=== PATIENT | male | born 1955 | race African-American/Black ===

== ENCOUNTER 2020-05-30 02:21 | Inpatient (IN) | payer MEDICARE, MEDICAID ==
[2020-05-30 03:32] LABS: INR-International Normal Ratio 1.2; PTT 29.5 sec (22.9-36.1); Prothrombin Time 15.3 sec (12.0-14.7)
[2020-05-30 03:37] LABS: Hemoglobin 7.4 g/dL (14.0-18.0); Mean Corpuscular HGB CONC 34.6 g/dL (32.0-36.0); Mean Corpuscular Volume 72.2 fL (78.0-98.0); Mean Platelet Volume 7.8 fL (7.4-10.4); Platelet Count 224 thou/uL (130-400); RBC Distribution Width 13.4 % (11.5-14.5); Red Blood Cell (RBC) Count 2.98 mill/uL (4.70-6.10)
[2020-05-30 03:44] LABS: Eosinophils 3 % (0-10); Lymphocytes 48 % (21-51); MDiff Complete? YES; Monocytes 3 % (0-10); Neutrophil 46 % (42-75); Platelet Morphology Comment Appears Adequate
[2020-05-30 03:57] LABS: ALT (SGPT) 63 U/L (8-55); AST (SGOT) 103 U/L (5-34); Albumin 3.2 g/dL (3.4-4.8); Alkaline Phosphatase 133 U/L (40-110); Anion Gap 16 mmol/L (10-20); BUN (Urea Nitrogen) 28 mg/dL (8.4-25.7); Bilirubin, Total 0.3 mg/dL (0.2-1.2); Calc. Creatinine Clearance 0 mL/min (70-130); Calcium 7.9 mg/dL (7.8-10.44); Carbon Dioxide 17 mmol/L (23-31); Chloride 105 mmol/L (98-107); Estimated GFR-MDRD 65; Globulin 3.1 g/dL (2.4-3.5); Glucose 128 mg/dL (80-115); Potassium 4.4 mmol/L (3.5-5.1); Protein, Total 6.3 g/dL (5.8-8.1); Sodium 134 mmol/L (136-145)
[2020-05-30] MEDS ORDERED: Ondansetron ODT 4 MG TAB PO PRN (05:44)
[2020-05-30] MEDS ORDERED: Ondansetron PF 4 MG/2 ML Vial IVP PRN (05:44)
--- NOTE | 2020-05-30 05:53 | PDOC.HHP ---
Hospitalist HPI - History of Present Illness blood in stool History of Present Illness: Case of an 64y/o male with pmhx of cva, hx of seizures DM, htn and hld who comes to hospital due to rectal bleeding. Patient states was on his usual state of health until today when he started to have multiple episodes of brigh red blood per rectum. he states got concern when he started to feel light headache for which he came to hospital for evaluation. he reports 5 episodes of bloody stools and had another at the ED. patient reports that he does not use blood thinner but is on plavix secondary to a previous stroke. refers a previus similar espisode 3 years ago which was dx as diverticular bleed. Patient denies any abdominal pain fever chills or nause Hospitalist ROS - Review of Systems All other systems reviewed; all pertinent +/- noted in HPI/Subj Hospitalist History - Past Surgical History Other Surgical History: rectal surgery - Social History Smoking Status: Current every day smoker Alcohol: reports: Occassional Drugs: reports: none Living Situation: With Family - Exam General Appearance: NAD, awake alert Eye: PERRL, anicteric sclera ENT: normocephalic atraumatic, no oropharyngeal lesions, moist mucosa Neck: supple, symmetric, no JVD, no thyromegaly Heart: RRR, no murmur, no gallops, no rubs Respiratory: CTAB, no wheezes, no rales, no ronchi Gastrointestinal: soft, non-tender, non-distended, normal bowel sounds Extremities: no cyanosis, no clubbing, no edema Skin: normal turgor, no lesions, no rashes Neurological: cranial nerve grossly intact, normal sensation to touch, no weakness Musculoskeletal: normal tone, normal strength, no muscle wasting Psychiatric: normal affect, normal behavior, A&O x 3 Hospitalist Results - Labs Result Diagrams: 05/30/20 03:05 05/30/20 03:05 Lab results: WBC 5.0 thou/uL (4.8-10.8) 05/30/20 03:05 Hgb 7.4 g/dL (14.0-18.0) L 05/30/20 03:05 Hct 21.5 % (42.0-52.0) L 05/30/20 03:05 MCV 72.2 fL (78.0-98.0) L 05/30/20 03:05 Plt Count 224 thou/uL (130-400) 05/30/20 03:05 Sodium 134 mmol/L (136-145) L 05/30/20 03:05 Potassium 4.4 mmol/L (3.5-5.1) 05/30/20 03:05 Chloride 105 mmol/L (98-107) 05/30/20 03:05 Carbon Dioxide 17 mmol/L (23-31) L 05/30/20 03:05 BUN 28 mg/dL (8.4-25.7) H 05/30/20 03:05 Creatinine 1.35 mg/dL (0.7-1.3) H 05/30/20 03:05 Glucose 128 mg/dL (80-115) H 05/30/20 03:05 Calcium 7.9 mg/dL (7.8-10.44) 05/30/20 03:05 Total Bilirubin 0.3 mg/dL (0.2-1.2) 05/30/20 03:05 AST 103 U/L (5-34) H 05/30/20 03:05 ALT 63 U/L (8-55) H 05/30/20 03:05 Alkaline Phosphatase 133 U/L (40-110) H 05/30/20 03:05 Serum Total Protein 6.3 g/dL (5.8-8.1) 05/30/20 03:05 Albumin 3.2 g/dL (3.4-4.8) L 05/30/20 03:05 Hospitalist H&P A/P - Problem (1) Lower GI bleeding Code(s): K92.2 - GASTROINTESTINAL HEMORRHAGE, UNSPECIFIED Status: Acute (2) Diabetes Code(s): E11.9 - TYPE 2 DIABETES MELLITUS WITHOUT COMPLICATIONS Status: Acute (3) HLD (hyperlipidemia) Code(s): E78.5 - HYPERLIPIDEMIA, UNSPECIFIED Status: Acute (4) HTN (hypertension) Code(s): I10 - ESSENTIAL (PRIMARY) HYPERTENSION Status: Acute - Plan Plan: 64y/o male with the stated pmhx who presents with lower gi bleeding lower gi bleeding - npo - gi consult - holding plavix - check hg q 4 hrs - transfuse if below 7 - ct showed showed wall thickening and inflammatory changes in terminal ilium and cecum - will cover w zosyn hld / htn / dm / seizures - continue home meds when able to tolerate po
[2020-05-30] MEDS: Sodium Chloride 0.9% 1,000 ML IV SCH (07:41)
[2020-05-30] MEDS: Piperacillin/Tazobactam 3.375 GM in Sodium Chloride 0.9% 100 ML IVPB SCH ×3 (07:42→20:53)
[2020-05-30 07:47] VITALS: BMI 20.3
[2020-05-30] MEDS ORDERED: FLU VACC QS2020-21(6MOS UP)/PF 60 MCG/0.5 ML SYRINGE IM ONE (08:15)
--- NOTE | 2020-05-30 08:42 | CT ---
PRELIMINARY REPORT/[facility]/EMERGENCY AFTER HOURS PROCEDURE EXAM: CT Abdomen and Pelvis with Intravenous Contrast CLINICAL HISTORY: Patient here for evaluation secondary to rectal bleeding. Patient states that he is having diarrhea i s just blood. Was starting to have some lightheadedness which is what prompted him to come in. TECHNIQUE: Axial computed tomography images of the abdomen and pelvis with intravenous contrast. CONTRAST: With; 60ML ISOVUE 370 COMPARISON: None provided. FINDINGS: LUNG BASES: No basilar airspace consolidation or pleural effusion. LIVER: Unremarkable. GALLBLADDER AND BILE DUCTS: Unremarkable. No calcified stone. No ductal dilation. PANCREAS: Unremarkable. SPLEEN: Unremarkable. ADRENAL GLANDS: Unremarkable. KIDNEYS, URETERS, AND BLADDER: Unremarkable. No hydronephrosis or nephrolithiasis. No ureteral or bladder calculi. STOMACH AND BOWEL: There is no evidence of intestinal obstruction. There is bowel wall thickening involving the termina l ileum and the region of the cecum. An ileitis is suspected. Other inflammatory bowel disease is not excluded.. APPENDIX: No CT evidence for appendicitis. PERITONEUM: No free fluid. No free air. LYMPH NODES: No lymphadenopathy. REPRODUCTIVE: Unremarkable as visualized. VASCULATURE: No aortic aneurysm. BONES: No fracture or suspicious osseous abnormality. ABDOMINAL WALL AND SOFT TISSUES: Unremarkable. IMPRESSION: There is bowel wall thickening and slight inflammatory change in the terminal ileum and the cecum, te rminal ileitis is suspected. There is no evidence of intestinal obstruction.. ELECTRONICALLY SIGNED BY: Chelsie Lewis DO May 30, 2020 4:22:45 AM JOB [employer]TER This report is intended for review by the ordering physician only, in accordance of law. If you recei ve this report in error, please call [facility] at [phone]. FINAL REPORT Final interpretation CT of the abdomen and pelvis: 05/30/2020 COMPARISON: None. HISTORY: Rectal bleeding. FINDINGS: The imaged lung bases demonstrate a tiny nodule laterally on image 6 measuring 3 mm. No taylor e intraperitoneal air or fluid is seen. Hypodensity is seen within the anterior aspect of the left lobe of the liver suggesting a focal area of fatty infiltration. There is a hypodensity in the superior aspect of the right lobe of the liver on image 14 measuring 8 mm, too small to characterize. Splenic granulomata noted. Diffuse hypodensity of the hepatic parenchyma suggests steatosis. The pancreas and adrenal glands demonstrate no acute findings. Bilateral kidneys appear grossly unremarkable. The lack of contrast media limits assessment of the bowel. On axial image 84, 85, 86, and 87, there i s abnormal soft tissue density in the left ischioanal fossa measuring approximately 2.9 cm in AP dimension and 1.6 cm in transverse dimension. This is not mentioned on the preliminary report and cou ld be related to malignancy on the basis of exophytic tumor or lymphadenopathy. There is no evidence of abscess in this region and there is no extraluminal gas seen. As mentioned in the preliminary report, there is circumferential wall thickening of the cecum. There is mild wall prominence of the ileum. Mildly enlarged lymph nodes are noted within the right lower quadrant mesentery measuring in the 7-8 mm range. No evidence for appendicitis. No evidence for large or small bowel obstruction. There is a small sliding-type hiatal hernia present. There is multilevel lower lumbar spine facet hypertrophy. No worrisome lytic or blastic bone lesions are seen. There is atherosclerotic calcification of the infrarenal abdominal aorta and the imaged arterial structures of the partially visualized upper extremities. IMPRESSION: 1. Circumferential wall thickening in the region of the cecum with adjacent mildly enlarged lymph nod es within the right lower quadrant mesentery. While this could represent an inflammatory/infectious process, in a patient of this age and given the lack of adjacent inflammatory fat stranding, this abn ormality is suspicious for malignancy. 2. Nonspecific hypodensity within the right lobe of the liver, too small to characterize. 3. Nonspecific soft tissue density in the left ischioanal fossa, not mentioned on the preliminary rep ort, suspicious for possible underlying malignancy. Dr. Ann made aware at 8:40 AM 05/30/2020 Code QD Transcribed Date/Time: 05/30/2020 9:28 AM
[2020-05-30] MEDS ORDERED: Iopamidol-370 76% 500 ML 1 ML ONE (09:20)
[2020-05-30] MEDS ORDERED: Heparin 1,000 UNITS/ML VIAL ONE (10:46)
[2020-05-30] MEDS ORDERED: GoLYTELY 4,000 ml Bottle PO SCH ×2 (11:00→18:00)
--- NOTE | 2020-05-30 11:30 | CON ---
DATE OF CONSULTATION: 05/30/2020 REQUESTING PHYSICIAN: Dr. Hawkins. REASON FOR CONSULTATION: Lower GI bleeding. HISTORY OF PRESENT ILLNESS: Kings Villafana Jr is a very pleasant 64-year-old man with a prior history of CVA and seizures as well as diabetes. He is on Plavix and aspirin. He reports having had a significant lower GI bleeding episode back in July 2017, having undergone endoscopy at that time and being diagnosed with diverticular bleeding. That episode resolved. He was more recently referred to our clinic, but had not been seen yet regarding iron deficiency anemia. Basically, over the past year, his hemoglobin has ranged from 9 to 10 and is microcytic. He takes oral iron supplementation, but has not had good response in his hemoglobin. He was admitted to the hospital early this morning with acute bright red blood per rectum. He states this started happening yesterday. He has had about 5 or 6 episodes of this which have been fairly large volume. There is no associated abdominal pain or nausea, but he did start to get lightheaded, which prompted his presentation. Labs early this morning showed hemoglobin 7.4, but repeat hemoglobin came back at 6.0, and he is about to get RBC transfusion. He has been hemodynamically stable with no tachycardia or hypotension and he has no other complaints. A CT of the abdomen and pelvis preliminary report came back suggesting terminal ileal and cecal inflammatory changes, but on the over-read, it was felt that rather than inflammatory changes, he just had circumferential thickening of the cecal area with associated lymphadenopathy and no inflammatory stranding, suspicious for malignancy as well as a 2.9 cm left ischioanal fossa density, also concerning for malignancy. REVIEW OF SYSTEMS: Full review of systems including constitutional, head, eyes, ears, nose, throat, GI, , cardiovascular, respiratory, musculoskeletal, neurologic systems is negative except as noted in the HPI. PAST MEDICAL HISTORY: CVA, diabetes, seizures, hypertension, hyperlipidemia, diverticular bleeding in July 2017, iron deficiency anemia with baseline hemoglobin 9 to 10. ALLERGIES: NO KNOWN DRUG ALLERGIES. OUTPATIENT MEDICATIONS: 1. Aspirin 81 mg daily. 2. Plavix 75 mg daily. 3. Losartan. 4. Amlodipine. 5. Metoprolol. 6. Phenytoin. 7. Pravastatin. 8. Hydroxyzine. 9. Iron 65 mg daily. SOCIAL HISTORY: The patient does smoke. Alcohol use is occasional. No drug use. FAMILY HISTORY: Noncontributory. PHYSICAL EXAMINATION: VITAL SIGNS: Temperature 98.4, pulse 80, blood pressure 114/72, 100% oxygen saturation on room air. GENERAL: A 64-year-old man, lying in bed comfortably, in no distress. MENTAL: He is alert and oriented, pleasant, conversational. He can give details about his history. SKIN: No jaundice, no rashes were palpable. EYES: No scleral icterus. Extraocular movements intact. ENT: Mucous membranes moist. No oral lesions. LYMPH: No submandibular or supraclavicular lymphadenopathy. THYROID: Nontender to palpation. HEART: Regular rate and rhythm. LUNGS: Clear to auscultation bilaterally. ABDOMEN: Nondistended. Bowel sounds present. Soft, nontender to palpation throughout. EXTREMITIES: No peripheral edema. VESSELS: Radial pulses 2+ bilaterally. NEURO : Cranial nerves 2 through 12 intact bilaterally. No focal deficits. LABORATORY STUDIES: Hemoglobin initially 7.4, but on repeat was 6.0; MCV 72.2; WBC 5.0; platelets 224. Sodium 134, potassium 4.4, BUN 28, creatinine 1.35. INR 1.2. Total bilirubin 0.3. Alkaline phosphatase 133, AST 103, ALT 63, albumin 3.2. COVID PCR is pending. IMAGING STUDIES: CT of the abdomen and pelvis, final report demonstrates circumferential thickening of the cecum with associated lymphadenopathy and lack of adjacent inflammatory stranding, all suspicious for malignancy. There is also nonspecific 2.9 cm left ischioanal fossa density which is also suspicious for malignancy. There is an 8 mm hypodensity in the right liver which is too small to characterize. ASSESSMENT AND PLAN: 1. Acute lower GI bleeding. 2. Abnormal CT of the colon, suggestive of cecal mass as well as mass in the ischioanal fossa. 3. History of diverticular bleed, last July 2017. The patient appears to have quite significant acute bleeding here with rapid hemoglobin decline from 7.4 to 6.0, despite his hemodynamic stability so far. Clinically, this could certainly favor recurrent diverticular bleed, but given the CT findings, need to consider severe inflammatory process or malignant process in the cecum as well. I have spoken with Dr. Hawkins. The patient should be transferred to a monitored unit for closer observation, and is going to be getting RBC transfusion. Continue with frequent H and H checks and transfuse as needed. We will give the patient a clear liquid diet today in anticipation of bowel preparation this evening, for colonoscopy tomorrow morning. We will also consent for EGD in case the colonoscopy is negative or unrevealing, which I doubt. GI will continue to follow along, with further recommendations following colonoscopy tomorrow. In the meantime, please feel free to call anytime with questions or concerns. Job ID: [id number]
[2020-05-30 14:46] LABS: Hemoglobin 6.3 g/dL (14.0-18.0)
[2020-05-30 16:25] LABS: SARS-CoV-2 MS2 Positive; SARS-CoV-2 N Gene Negative; SARS-CoV-2 S Gene Negative; SARS-CoV-2 by NAA Not Detected (NotDetected); SARS-CoV-2 orf1ab Negative
[2020-05-30 16:49] LABS: Hemoglobin 6.4 g/dL (14.0-18.0)
[2020-05-30 22:08] LABS: Hemoglobin 7.5 g/dL (14.0-18.0)
[2020-05-31] MEDS: Sodium Chloride 0.9% 1,000 ML IV SCH ×2 (01:29→23:14)
[2020-05-31] MEDS: Piperacillin/Tazobactam 3.375 GM in Sodium Chloride 0.9% 100 ML IVPB SCH ×4 (02:53→21:30)
[2020-05-31 04:02] LABS: Hemoglobin 6.1 g/dL (14.0-18.0)
[2020-05-31] MEDS ORDERED: Fentanyl 100 MCG/2 ML VIAL ONE (08:05)
[2020-05-31] MEDS ORDERED: Promethazine HCl 25 MG/ML VIAL IM PRN (08:50)
[2020-05-31] MEDS ORDERED: Promethazine HCl 25 MG/ML VIAL SLOW IVP PRN (08:50)
[2020-05-31] MEDS ORDERED: Ondansetron HCl/PF 4 MG/2 ML Vial IVP PRN (08:50)
[2020-05-31] MEDS ORDERED: PACU-Morphine 4MG/ML VIAL SLOW IVP PRN (08:50)
--- NOTE | 2020-05-31 09:39 | OP ---
DATE OF PROCEDURE: 05/31/2020 EMERGENCY MEDICAL SERVICE COORDINATOR SURGEON: None. PROCEDURES PERFORMED: 1. Colonoscopy, diagnostic. 2. Esophagogastroduodenoscopy, diagnostic. INDICATIONS: 1. Gastrointestinal bleeding. 2. Acute on chronic blood-loss anemia. 3. Abnormal CT scan, suggestive of cecal and ileal thickening as well as indeterminate density of the ischial anal fossa. MEDICATIONS: See Anesthesia record. FINDINGS: After discussion of the risks, benefits, and alternatives of the procedure, informed consent was obtained and witnessed. Pre-endoscopic cardiopulmonary examination was satisfactory. Time-out was performed before sedation was achieved. Sedation was achieved with Anesthesia assistance in the endoscopy unit. Digital rectal exam was performed, which was unremarkable. A Pentax adult colonoscope was inserted into the anus and passed forward to the cecum in the usual fashion. Advancement to the cecum was difficult due to tortuosity of the colon, but the cecal base was reached with the aid of manual pressure and loop reduction. The endoscope was advanced about 10 cm into the terminal ileum and then, slowly and gradually withdrawn in a circumferential manner with careful examination of the colonic mucosa. The quality of the prep was good. There was a large amount of fresh blood and blood clots fairly evenly distributed throughout the entire colon as well as the distal 10 cm of the terminal ileum, and as far up into the ileum as I could see. Fresh clots were coming out of the terminal ileum and from more proximal than I was able to reach with the scope. The mucosa of the ileum that I was able to examine appeared normal. I was not able to identify any bleeding lesion to the extent examined in either the ileum or the colon. There were really no diverticula noted except for possibly a small diverticulum right at the ileocecal valve, which was difficult to see. But, there was no blood coming from this area. Overall findings seem most consistent with more proximal source of active hemorrhage. Retroflexion in the rectum demonstrated internal hemorrhoids. The colonoscope was completely withdrawn. It was decided to proceed with upper endoscopy. The patient was repositioned. A Pentax adult upper endoscope was placed into the oropharynx and passed through the cricopharyngeus under direct visualization. The esophageal mucosa appeared normal throughout with the Z-line at 40 cm from the incisors. There were no esophageal varices. The endoscope was advanced into the stomach. Forward and retroflexed views of the entire gastric mucosa were obtained. The gastric mucosa appears completely normal. There were no gastric varices. No mucosal abnormalities. No old blood or active bleeding. The endoscope was advanced through the pylorus and into the first and second portions of the duodenum, which also appeared normal with no blood or any bleeding lesion noted. I advanced the scope down into the third and fourth portions of the duodenum, which also appeared normal. The upper endoscope was completely withdrawn and the patient allowed to recover. The patient tolerated the procedure well. There were no immediate postprocedure complications. IMPRESSION: 1. Fresh blood and clots evenly distributed throughout the entire colon as well as the distal 10 cm of the terminal ileum, all suggestive of more proximal bleeding source. 2. Tortuous colon. 3. Nonbleeding internal hemorrhoids. 4. Otherwise normal colonoscopy to the terminal ileum. 5. Normal esophagogastroduodenoscopy to the fourth portion of the duodenum. RECOMMENDATION: 1. Transfuse RBCs, continue to monitor H and H closely, keep ahead. 2. Stat nuclear medicine tagged RBC scan for localization. Based on endoscopy findings, suspect small bowel source of bleeding. 3. Clear liquid diet. 4. Keep holding the Plavix. 5. Depending on results of tagged RBC scan, we will likely need to obtain surgical consultation. Job ID: [id number]
[2020-05-31 10:10] LABS: Hemoglobin 6.4 g/dL (14.0-18.0)
[2020-05-31] MEDS ORDERED: PROPOFOL 200 MG/20 ML VIAL ONE (12:56)
[2020-05-31] MEDS ORDERED: Lidocaine 1% PF 5 ML VIAL ONE (12:56)
[2020-05-31] MEDS ORDERED: PHENYLEPHRINE-NS 100 MCG/ML 10 ML SYRINGE ONE (12:56)
--- NOTE | 2020-05-31 15:13 | NM ---
NUCLEAR MEDICINE TAGGED RED CELL SCAN HISTORY: Lower GI bleed RADIOPHARMACEUTICAL: 26 mCi technetium-99m tagged RBCs injected intravenously. COMPARISON: None FINDINGS: Normal uptake of the radiopharmaceutical in the background is seen. There is abnormal accumulation of the radiopharmaceutical is seen beginning in the right upper quadra nt of the abdomen. This then progresses to the right lower quadrant of the abdomen in a slightly more medial course that would be suspected for colon. The contrast eventually passes throughout the e ntire colon to the level the rectum. IMPRESSION: There is active GI bleeding that begins in the right upper quadrant of the abdomen. The unusual cours e of the passage of the contrast through the bowel suggests that this is in the distal small bowel rather than in the colon
[2020-05-31 16:38] LABS: #Basophils 0.1 thou/uL (0.0-0.2); #Eosinphils 0.2 thou/uL (0.0-0.7); #Lymphocytes 2.4 thou/uL (1.20-3.40); #Monocytes 0.6 thou/uL (0.11-0.59); #Neutrophils 4.6 thou/uL (1.40-6.50); %Basophils 1.1 % (0.0-1.0); %Eosinophils 2.1 % (0.0-10.0); %Lymphocytes 30.8 % (21.0-51.0); %Monocytes 7.6 % (0.0-10.0); %Neutrophils 58.5 % (42.0-75.0); Mean Corpuscular HGB CONC 34.7 g/dL (32.0-36.0); Mean Corpuscular Hemoglobin 28.5 pg (27.0-31.0); Mean Corpuscular Volume 82.1 fL (78.0-98.0); Mean Platelet Volume 7.8 fL (7.4-10.4); Platelet Count 147 thou/uL (130-400); White Blood Cell (WBC) Count 7.8 thou/uL (4.8-10.8)
--- NOTE | 2020-05-31 17:28 | PRG ---
DATE OF SERVICE: 05/31/2020 Mr. Villafana is back from his tagged RBC scan. This demonstrated active hemorrhage in what appears to be the distal small bowel. This is more proximal than I could reach on colonoscopy this morning. Mr. Villafana has borderline tachycardia, but is otherwise hemodynamically stable. Since the colonoscopy, he has passed a small amount of bright red blood per rectum again. Hemoglobin continues to trend down. After 3 units of RBCs, hemoglobin is 6.0 this afternoon. I am ordering another 2 units of packed RBCs. I consulted Dr. Villafana, who has already seen the patient for surgical backup. I do think the patient needs consideration of interventional radiology, mesenteric angiography, and possible coil embolization. We are going to see about inpatient transfer to a tertiary center for this. If transfer is not possible, and the patient keeps bleeding, he may have to go to surgery. There is nothing that can be done endoscopically. Please call anytime with questions or concerns. Job ID: [id number]
--- NOTE | 2020-05-31 17:47 | PDOC.HOSPP ---
- Subjective Encounter Date: 05/31/20 Encounter Time: 17:45 Subjective: Patient seen for follow-up regarding lower GI bleed. He denies chest pain or shortness of breath. - Objective Vital Signs & Weight: Vital Signs (12 hours) Temp Pulse Resp BP BP BP 05/31/20 15:33 99.0 F 05/31/20 12:00 101/63 92/66 110/70 05/31/20 11:14 97.4 F L 05/31/20 07:45 99 F 96 16 110/65 05/31/20 07:14 98.8 F Weight Weight 137 lb 12.8 oz Most Recent Monitor Data Heart Rate from ECG 101 NIBP 121/77 NIBP BP-Mean 91 Respiration from ECG 16 SpO2 100 I&O: 05/30/20 05/31/20 06/01/20 06:59 06:59 06:59 Intake Total 7240 350 Balance 7240 350 Result Diagrams: 05/31/20 16:30 05/30/20 03:05 Additional Labs: Accuchecks 05/31/20 05/31/20 05/31/20 16:46 10:52 05:31 POC Glucose 181 H 142 H 152 H 05/30/20 20:15 POC Glucose 156 H I reviewed patient's labs and MAR EKG Reviewed by me: Yes (Normal sinus rhythm on telemetry) Hospitalist ROS - Review of Systems Constitutional: denies: fever, chills, sweats, weakness, malaise Cardiovascular: denies: chest pain, palpitations, orthopnea, paroxysmal noc. dyspnea, edema, light headedness Gastrointestinal: reports: hematochezia. denies: nausea, vomiting, abdominal pain, diarrhea, constipation, melena - Medication Medications: Active Medications Generic Name Dose Route Start Last Admin Trade Name Freq PRN Reason Stop Dose Admin Sodium Chloride 1,000 mls @ 50 mls/hr 05/30/20 05:45 05/31/20 01:29 Normal Saline 0.9% IV Not Given .Q20H EJ Piperacillin Sod/Tazobactam 100 mls @ 200 mls/hr 05/31/20 03:00 05/31/20 15:57 Sod 3.375 gm/ Sodium Chloride IVPB 100 mls 0300,0900,1500,2100 JE Administration - Exam General Appearance: awake alert Eye: anicteric sclera ENT: moist mucosa Neck: supple Heart: RRR Respiratory: CTAB Gastrointestinal: soft, non-tender Skin: no rashes Psychiatric: normal affect, normal behavior Hosp A/P - Plan - Problem (1) Lower GI bleeding Code(s): K92.2 - GASTROINTESTINAL HEMORRHAGE, UNSPECIFIED Status: Acute (2) Diabetes Code(s): E11.9 - TYPE 2 DIABETES MELLITUS WITHOUT COMPLICATIONS Status: Chronic (3) HLD (hyperlipidemia) Code(s): E78.5 - HYPERLIPIDEMIA, UNSPECIFIED Status: Chronic (4) HTN (hypertension) Code(s): I10 - ESSENTIAL (PRIMARY) HYPERTENSION Status: Chronic - Plan Status post EGD and colonoscopy. Status post nuclear bleeding scan. Patient appears to be bleeding from distal small bowel. General surgery service consulted. GI service is also trying to arrange transfer to tertiary care center for intervention through IR. Follow H&H, transfuse as needed. Give intravenous phenytoin. Start Accu-Cheks and insulin sliding scale. Hold antihypertensives for now, given GI bleed.
[2020-05-31] MEDS ORDERED: Fosphenytoin Sodium 200 MG in Sodium Chloride 0.9% 100 ML IVPB SCH (18:00)
[2020-05-31] MEDS ORDERED: Dextrose 50% Abboject 50 ML SYRINGE SLOW IVP PRN (18:01)
[2020-05-31] MEDS ORDERED: Dextrose 5% in Water 1,000 ML IV PRN (18:01)
[2020-05-31] MEDS ORDERED: HumaLOG 300 UNITS/3 ML VIAL SC PRN (18:01)
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
[2020-05-31 22:14] LABS: Hemoglobin 6.2 g/dL (14.0-18.0)
[2020-05-31 23:59] VITALS: BP 130/76
[2020-06-01] MEDS: Piperacillin/Tazobactam 3.375 GM in Sodium Chloride 0.9% 100 ML IVPB SCH ×2 (02:44→09:23)
[2020-06-01] MEDS: Sodium Chloride 0.9% 1,000 ML IV SCH (02:48)
[2020-06-01 04:12] LABS: #Basophils 0.1 thou/uL (0.0-0.2); #Eosinphils 0.3 thou/uL (0.0-0.7); #Lymphocytes 2.6 thou/uL (1.20-3.40); #Monocytes 0.6 thou/uL (0.11-0.59); #Neutrophils 4.1 thou/uL (1.40-6.50); %Eosinophils 3.4 % (0.0-10.0); %Lymphocytes 34.1 % (21.0-51.0); %Monocytes 8.4 % (0.0-10.0); %Neutrophils 53.1 % (42.0-75.0); Hemoglobin 7.3 g/dL (14.0-18.0); Mean Corpuscular Hemoglobin 28.4 pg (27.0-31.0); Mean Corpuscular Volume 83.4 fL (78.0-98.0); Mean Platelet Volume 7.7 fL (7.4-10.4); Platelet Count 136 thou/uL (130-400); RBC Distribution Width 14.6 % (11.5-14.5); Red Blood Cell (RBC) Count 2.56 mill/uL (4.70-6.10); White Blood Cell (WBC) Count 7.7 thou/uL (4.8-10.8)
[2020-06-01 04:54] LABS: Anion Gap 8 mmol/L (10-20); BUN (Urea Nitrogen) 11 mg/dL (8.4-25.7); Calc. Creatinine Clearance 62 mL/min (70-130); Carbon Dioxide 22 mmol/L (23-31); Chloride 115 mmol/L (98-107); Estimated GFR-MDRD 82; Glucose 119 mg/dL (80-115); Potassium 3.8 mmol/L (3.5-5.1); Sodium 141 mmol/L (136-145)
[2020-06-01 08:12] VITALS: TEMP 97.9
--- NOTE | 2020-06-01 09:40 | PRG ---
DATE OF SERVICE: 06/01/2020 SUBJECTIVE: Mr. Villafana passed another bloody stool just before he went to sleep last night, and another one this morning, but he did not have to get up in the middle of the night. He is not having any abdominal pain, though he is feeling hungry. He has received 5 units of RBCs total, responded nicely to transfusion yesterday with hemoglobin up to 7.3. OBJECTIVE: VITAL SIGNS: Temperature 97.9, pulse 83, blood pressure 119/72, and 100% oxygen saturation on room air. GENERAL: In no acute distress. HEART: Regular rate and rhythm. LUNGS: Clear to auscultation bilaterally. ABDOMEN: Soft, nontender to palpation. EXTREMITIES: No peripheral edema. LABORATORY STUDIES: Hemoglobin 7.3, WBC 7.7, and platelets 136. INR 1.2. Sodium 141, potassium 3.8, BUN 11, creatinine 1.10, and glucose 112. COVID PCR negative. ASSESSMENT AND PLAN: Ongoing hemorrhage from distal small-bowel. Again, EGD was normal and colonoscopy showed blood coming more proximally than the colonoscope could reach in the terminal ileum. Tagged RBC scan yesterday showed active hemorrhage in the right abdomen and what was felt to be distal small-bowel. It is unclear exactly what is causing the bleeding, though note CT scan on admission suggested some lymphadenopathy in the area as well as cecal thickening which was not appreciated on the colonoscopy. There is also a 3 cm area in the soft tissue near the ischioanal fossa, which I cannot appreciate on physical exam or on endoscopy. At any rate, the patient has evidently been accepted in transfer to [facility] for mesenteric angiogram and I still recommend this be considered as we do have evidence of ongoing hemorrhage despite his clinical stability. Plavix is being held. Appreciate Dr. Villafana seeing the patient as surgical backup, but hopefully the transfer will go through and he will be able to get mesenteric angiogram. Job ID: [id number]
--- NOTE | 2020-06-01 13:09 | PDOC.DS.DS ---
Provider - Provider Date of Admission: 05/30/20 06:01 Date of Discharge: 06/01/20 Admitting Provider: Mikhail Saavedra Consultations: Gastroentrology (Dr. Murphy), General Surgery (Dr. Villafana) Primary Care Physician: Nasrin Westbrook Course - Hospital Course Hospital Course: Discharge diagnosis: 1. GI bleed 2. Acute blood loss anemia 3. COVID-19 test negative Hospital course: Patient is a pleasant 64-year-old gentleman who was admitted to the hospital on May 30, 2020 for GI bleeding. His Plavix was held. H&H was checked and he received packed RBC transfusion. He was seen by gastroenterology service. He had bidirectional scopes. He was found to have fresh blood and clots evenly distributed throughout the entire colon as well as the distal 10 cm of the terminal ileum, all suggestive of more proximal bleeding source. He had tortuous colon, nonbleeding internal hemorrhoids, otherwise normal colonoscopy to the terminal ileum and normal EGD to the fourth portion of the duodenum. He went on to have a nuclear medicine tagged RBC scan for localization. He was found to have active GI bleeding that begins in the right upper part of the abdomen. It was suggested that the distal small bowel was the source as of the bleed and not the colon. General surgery service was also consulted. Arrangeme nts were made to transfer patient to tertiary care center for interventional radiology procedure to stop the bleeding. At the time of this dictation, patient has been accepted to [facility] in [place] and is awaiting transport. CT scan of the abdomen done at the time of admission suggested some lymphadenopathy as well as cecal thickening which was not appreciated on colonoscopy. There was also a 3 cm area in the soft tissue near the ischio anal fossa, which was not appreciated on physical exam or on endoscopy. Discharge destination: [facility] in [place] Total amount of time spent coordinating this discharge: 32 minutes Resuscitation Status: 05/30/20 05:44 Resuscitation Status Routine Resuscitation Status: FULL: Full Resuscitation - Labs Lab Results: 06/01/20 03:34 06/01/20 03:34 Abnormal Lab Results - Last 48 hrs 05/30/20 03:05: Crossmatch See Detail 05/30/20 14:35: Hgb 6.3 L 05/30/20 16:30: Hgb 6.4 L 05/30/20 21:54: Hgb 7.5 L, Hct 21.9 L 05/31/20 03:44: Hgb 6.1 L, Hct 18.3 L 05/31/20 09:58: Hgb 6.4 L, Hct 19.0 L 05/31/20 16:30: RBC 2.10 L, Hgb 6.0 L, Hct 17.2 L, RDW 16.0 H, Basophils % 1.1 H, Monocytes # 0.6 H 05/31/20 22:04: Hgb 6.2 L, Hct 18.6 L 06/01/20 03:34: Chloride 115 H, Carbon Dioxide 22 L, Anion Gap 8 L, Calcium 7.0 L 06/01/20 03:34: RBC 2.56 L, Hgb 7.3 L, Hct 21.3 L, RDW 14.6 H, Monocytes # 0.6 H - Physical Exam Vitals: Vital Signs (12 hours) Temp Pulse Ox 06/01/20 12:16 100 06/01/20 08:00 97.9 F 06/01/20 04:18 99.2 F 06/01/20 02:49 99.4 F Weight Weight 137 lb 12.8 oz Most Recent Monitor Data Heart Rate from ECG 87 NIBP 119/71 NIBP BP-Mean 87 Respiration from ECG 12 SpO2 100 Physical Exam: The patient was seen and examined on the day of discharge. Patient denies chest pain or shortness of breath. Vital signs are stable. S1 and S2 are heard. Lungs are clear to auscultation bilaterally. Plan - Discharge Medications Home Medications: Medication Instructions Recorded Confirmed Type Amlodipine [Norvasc] 10 mg PO DAILY 05/30/20 05/30/20 History Aspirin 81 mg PO DAILY 05/30/20 05/30/20 History Clopidogrel Bisulfate [Clopidogrel] 75 mg PO DAILY 05/30/20 05/30/20 History Garlic 500 mg PO DAILY 05/30/20 05/30/20 History Iron 65 mg PO DAILY 05/30/20 05/30/20 History Losartan Potassium 100 mg PO DAILY 05/30/20 05/30/20 History Metoprolol Tartrate 100 mg PO DAILY 05/30/20 05/30/20 History Phenytoin Sodium Extended 200 mg PO BID 05/30/20 05/30/20 History Potassium Chloride [K-Dur] 99 mg PO DAILY 05/30/20 05/30/20 History Pravastatin Sodium 20 mg PO HS 05/30/20 05/30/20 History Vit D3-Vit K/Berberine/Hops 2,000 iu/kg PO DAILY 05/30/20 05/30/20 History [Ostera Tablet] hydrALAZINE [Apresoline] 75 mg PO BID 05/30/20 05/30/20 History Allergies: No Known Drug Allergies Allergy (Verified 05/30/20 08:17) PER ER NOTES - Follow up Plan Referrals: Nasrin Westbrook MD [Primary Care Provider] - Disposition: OTHER HOSPITAL INPT
== END 2020-06-01 12:30 | disposition short-term general hospital (02) | DRG 378 ==
LOC: ERS 02:21 → T4-A 06:01 → IMCU/EMU 18:09
PROVIDERS: ADMIT Internal Medicine; ATTEND Internal Medicine
PROC: 30233N1 Transfusion of Nonautologous Red Blood Cells into Peripheral Vein, Percutaneous Approach (ICD-10-PCS; 2020-05-30)
PROC: 0DJ08ZZ Inspection of Upper Intestinal Tract, Via Natural or Artificial Opening Endoscopic (ICD-10-PCS; principal; 2020-05-31)
PROC: 0DJD8ZZ Inspection of Lower Intestinal Tract, Via Natural or Artificial Opening Endoscopic (ICD-10-PCS; 2020-05-31)
DX: K92.2 Gastrointestinal hemorrhage, unspecified (principal); D62 Acute posthemorrhagic anemia; Z20.828 Contact with and (suspected) exposure to other viral communicable diseases; E11.9 Type 2 diabetes mellitus without complications; E78.5 Hyperlipidemia, unspecified; I10 Essential (primary) hypertension; K64.8 Other hemorrhoids; R59.1 Generalized enlarged lymph nodes; K63.89 Other specified diseases of intestine; R56.9 Unspecified convulsions; F17.200 Nicotine dependence, unspecified, uncomplicated; Z86.73 Personal history of transient ischemic attack (TIA), and cerebral infarction without residual deficits; Z79.82 Long term (current) use of aspirin; Z79.02 Long term (current) use of antithrombotics/antiplatelets
CPT/HCPCS: 36415; 36416; 36430; 74177; 78278; 80048; 80053; 85014; 85018; 85025; 85610; 85730; 86850; 86900; 86901; 87635; A9604; J1644; J2543; J2704; J3010; J3490; P9016; Q2009; Q9967; U0003

== ENCOUNTER 2020-06-12 16:46 | Emergency (ER) | payer MEDICARE, MEDICAID ==
[2020-06-12 17:26] LABS: #Basophils 0.1 thou/uL (0.0-0.2); #Eosinphils 0.2 thou/uL (0.0-0.7); #Lymphocytes 2.8 thou/uL (1.20-3.40); #Monocytes 0.8 thou/uL (0.11-0.59); #Neutrophils 3.7 thou/uL (1.40-6.50); %Basophils 1.6 % (0.0-1.0); %Eosinophils 3.1 % (0.0-10.0); %Lymphocytes 36.9 % (21.0-51.0); %Monocytes 10.6 % (0.0-10.0); %Neutrophils 47.9 % (42.0-75.0); Hemoglobin 8.8 g/dL (14.0-18.0); Mean Corpuscular HGB CONC 32.7 g/dL (32.0-36.0); Mean Corpuscular Hemoglobin 28.6 pg (27.0-31.0); Mean Corpuscular Volume 87.5 fL (78.0-98.0); Mean Platelet Volume 6.8 fL (7.4-10.4); Platelet Count 515 thou/uL (130-400); RBC Distribution Width 14.9 % (11.5-14.5); Red Blood Cell (RBC) Count 3.08 mill/uL (4.70-6.10); White Blood Cell (WBC) Count 7.7 thou/uL (4.8-10.8)
[2020-06-12 17:58] LABS: ALT (SGPT) 29 U/L (8-55); AST (SGOT) 35 U/L (5-34); Albumin 3.3 g/dL (3.4-4.8); Alkaline Phosphatase 114 U/L (40-110); Anion Gap 13 mmol/L (10-20); BUN (Urea Nitrogen) 12 mg/dL (8.4-25.7); Bilirubin, Total 0.2 mg/dL (0.2-1.2); Calc. Creatinine Clearance 0 mL/min (70-130); Calcium 8.4 mg/dL (7.8-10.44); Carbon Dioxide 26 mmol/L (23-31); Chloride 108 mmol/L (98-107); Globulin 3.2 g/dL (2.4-3.5); Glucose 138 mg/dL (80-115); Potassium 5.2 mmol/L (3.5-5.1); Protein, Total 6.5 g/dL (5.8-8.1); Sodium 142 mmol/L (136-145)
--- NOTE | 2020-06-12 18:01 | RAD ---
PORTABLE CHEST ONE VIEW: 06/12/20 at 5:24 p.m. HISTORY: Bilateral lower extremity edema. FINDINGS: The heart size is normal. The lungs are well expanded without lobar consolidation, pneumothoraces, or pleural effusions. IMPRESSION: No acute process. POS: LONAA
--- NOTE | 2020-06-12 21:14 | ULT ---
Venous duplex sonogram bilateral lower extremity HISTORY: Bilateral leg pain and edema. FINDINGS: Each common femoral vein and greater saphenous junction were evaluated along with each femo ral, deep femoral, popliteal, and posterior tibial vein. There is good color and spectral Doppler flow, compression, and augmentation. IMPRESSION : Normal exam.
== END 2020-06-12 22:30 | disposition home or self-care (01) ==
LOC: ERS 16:46
DX: R60.0 Localized edema (principal); D64.9 Anemia, unspecified; I10 Essential (primary) hypertension; E11.9 Type 2 diabetes mellitus without complications; E78.5 Hyperlipidemia, unspecified; R94.5 Abnormal results of liver function studies; Z86.73 Personal history of transient ischemic attack (TIA), and cerebral infarction without residual deficits; Z79.82 Long term (current) use of aspirin; Z79.84 Long term (current) use of oral hypoglycemic drugs; Z79.899 Other long term (current) drug therapy
CPT/HCPCS: 36415; 71045; 80053; 83880; 85025; 93005; 93970

== ENCOUNTER 2020-09-23 09:01 | Outpatient (CLI) | payer MEDICARE, MEDICAID | END 2020-09-23 09:02 | disposition home or self-care (01) | LOC: BICULT 09:01 | PROVIDERS: ATTEND Physician Assistant Medical | DX: R74.01 Elevation of levels of liver transaminase levels (principal) | CPT/HCPCS: 76705 ==

== ENCOUNTER 2021-01-07 09:12 | Outpatient (CLI) | payer MEDICARE, MEDICAID | END 2021-01-07 09:13 | disposition home or self-care (01) | LOC: BICCT 09:12 | PROVIDERS: ATTEND Family Medicine | DX: R74.8 Abnormal levels of other serum enzymes (principal); K76.9 Liver disease, unspecified | CPT/HCPCS: 74170; 82565 ==